=== PATIENT | female | born 1990 | race Caucasian/White ===

== ENCOUNTER 2022-03-20 09:32 | Outpatient (CLI) | payer OTHER, SELFPAY | END 2022-03-20 09:33 | disposition home or self-care (01) | PROVIDERS: Visit Provider Advanced Practice Midwife | DX: Z34.91 Encounter for supervision of normal pregnancy, unspecified, first trimester (principal); O34.81 Maternal care for other abnormalities of pelvic organs, first trimester; N83.11 Corpus luteum cyst of right ovary; Z3A.01 Less than 8 weeks gestation of pregnancy | CPT/HCPCS: 76817; 84702; 86850; 86900; 86901 ==

== ENCOUNTER 2022-03-22 12:52 | Outpatient (CLI) | payer OTHER, SELFPAY | END 2022-03-22 12:53 | disposition home or self-care (01) | PROVIDERS: Visit Provider Advanced Practice Midwife | DX: Z34.91 Encounter for supervision of normal pregnancy, unspecified, first trimester (principal); Z3A.08 8 weeks gestation of pregnancy | CPT/HCPCS: 84702 ==

== ENCOUNTER 2022-04-01 17:04 | Outpatient (CLI) | payer OTHER, SELFPAY ==
--- NOTE | 2022-04-01 17:00 | CRLHL7_ITS ---
For Patients: As a result of the Century Cures Act, medical imaging exams and procedure reports are released immediately into your electronic medical record. You may view this report before your referring provider. If you have questions, please contact your health care provider. INDICATION: Follow up viability COMPARISON: 03/20/2022 TECHNIQUE: Real-time briceño-scale imaging of the pelvis was performed. FINDINGS: There is no intrauterine or ectopic . Focus of increased echogenicity within the endometrial canal is present measuring 1.6 x 0.4 x 1.0 cm representing blood products. Endometrial thickness 7 millimeters. Ovaries normal. IMPRESSION: No intrauterine or ectopic . Residual blood products in the uterine fundal endometrium. Dictated by J Carlos Kam MD @ 04/02/2022 8:35:54 AM (Electronically Signed)
== END 2022-04-01 17:05 | disposition home or self-care (01) ==
LOC: US 17:04
PROVIDERS: Visit Provider Advanced Practice Midwife
DX: O20.9 Hemorrhage in early pregnancy, unspecified (principal)
CPT/HCPCS: 76817

== ENCOUNTER 2022-04-01 18:34 | Outpatient (CLI) | payer OTHER, SELFPAY ==
[2022-04-01 20:08] LABS: HCG Quantitative* 16.63 mIU/mL
== END 2022-04-01 18:35 | disposition home or self-care (01) ==
LOC: NFLDREF 18:34
PROVIDERS: Visit Provider Physician Assistant
DX: O03.9 Complete or unspecified spontaneous abortion without complication (principal)
CPT/HCPCS: 84702

== ENCOUNTER 2022-07-22 16:28 | Outpatient (CLI) | payer OTHER, SELFPAY ==
--- OUTSIDE RECORDS SUMMARY | 2022-07-22 16:31 | XMS_ITS | Clinical Summary ---
:1990 Author Organization [facility] Address [address] [place] [address] Care Team Providers Name Role Phone None Reported, Pcp Primary Care Provider Unavailable Source Comments Patient records contain information from all sites at [facility]. For routine questions regarding patient records, call [phone] during business hours, M-F 8:00 AM - 5:00 PM Central Time. Record requests for emergency care only can be directed to [phone] at any time.[facility] Allergies Active Allergy Reactions Severity Noted Date Comments Sulfa (Sulfonamide Other (see comments), 03/19/2022 Tachycardia Antibiotics) Hallucinations Medications Medication Sig Dispensed Refills Start Date End Date Status Take 1 tablet by 0 Act hardy [id number]-[id number] 27 mouth daily. mg iron- 1 mg tablet Active Problems Comments Yes No known active problems Social History Tobacco Use Types Packs/Day Years Used Date Smoking Tobacco: Never Tobacco Cessation: Counseling Given: Not Answered Alcohol Use Standard Drinks/Week Comments Not Currently 0 (1 standard drink = 0.6 oz pure alcoho l) Comments Yes Sex Assigned at Date Recorded Not on file Last Filed Vital Signs Vital Sign Reading Time Taken Comments Blood Pressure 125/84 03/19/2022 8:30 PM CDT Pulse 81 03/19/2022 8:30 PM CDT Temperature 36.9 ??C (98.4 ??F) 03/19/2022 4:35 PM CDT Respiratory Rate 15 03/19/2022 8:30 PM CDT Oxygen Saturation 100% 03/19/2022 8:30 PM CDT Inhaled Oxygen Concentration - - Weight 75.3 kg (166 lb 0.1 oz) 03/19/2022 4:25 PM CDT Height - - Body Mass Index - - Plan of Treatment Health Maintenance Due Date Last Done Comments Cervical Cancer Screening 1990 HIV Screening 1990 Hepatitis B Vaccines (1 of 3 - 1992 3-dose series) Hepatitis C Screening 1992 COVID-19 Vaccine (#1) 1992 DTaP,Tdap,and Td Vaccines (1 - 2011 Tdap) Depression Screening (Annual 08/10/2021 PHQ-2) Influenza Vaccine (#1) 2022 Pneumococcal vaccine (0-64 years) Aged Out No longer eligible based on patient's age to complete this topic Insurance Payer Benefit Plan / Subscriber ID Effective Dates Phone Addre ss Type Group [employer] [id number] 2021-Present [phone] [address] [place] [address] Care Teams Purchasing Associate Relationship Specialty Start Date End Date None Reported, Pcp PCP - General Family Medicine 03/19/22
--- OUTSIDE RECORDS SUMMARY | 2022-07-22 16:31 | XMS_ITS | Encounter Summary ---
:1990 Author Organization [facility] Address [address] [place] [address] Care Team Providers Name Role Phone None Reported, Pcp Primary Care Provider Unavailable Reason for Referral Outpatient (Routine) - Pending Review Specialty Diagnoses / Procedures Referred By Contact Refer red To Contact Emergency Medicine Diagnoses Threatened (HCC) Ramírez Ernst D.O. [facility] [address] [place] [address] Referral ID Status Reason Start Date Expiration Date Visits V isits Requested Authorized [id number] Pending 03/19/2022 03/19/2023 1 1 Review Reason for Visit Reason Comments Vaginal Bleeding Started last night. No traum a. Just travelled for 2 days, drove up from [place]. Encounter Details Date Type Department Care Team Description 03/19/2022 Emergency [place] [facility] Chidi Salinas M.D. [address] [place] [address] Threatened Department Ramírez Ernst D.O. [address] [place] [address] (HCC) [address] [facility] (Primary Dx) [place] [address] Social History Tobacco Use Types Packs/Day Years Used Date Smoking Tobacco: Never Tobacco Cessation: Counseling Given: Not Answered Alcohol Use Standard Drinks/Week Comments Not Currently 0 (1 standard drink = 0.6 oz pure alcoho l) Sex Assigned at Date Recorded Not on file documented as of this encounter Last Filed Vital Signs Vital Sign Reading [...] - - Body Mass Index - - documented in this encounter Discharge Instructions AttachmentsThe following attachments cannot be sent through Care Everywhere. Threatened Miscarriage Wyim-bc-Bney (Serbian)documented in this encounter Medications at Time of Discharge Medication Sig Dispensed Refills Start Date End Date Take 1 tablet by 0 [id number]-Jh-domg-FA 27 mg mouth daily. iron- 1 mg tablet documented as of this encounter ED Notes Ramírez Ernst D.O. - 03/19/2022 8:38 PM CDT Care of patient transferred to me by Dr. Salinas. Disposition pending blood type/beta hCG. At the time of care transition patient was awaiting type and screen and beta quant. Her blood type is AB positive so she does not warrant treatment with RhoGAM. Her beta quant is just over 6100. She has follow-up arranged with an document control clerk and [place] for tomorrow. I have encouraged her to retain this appointment. I have also placed an order for follow-up with OBGYN here in [place] as the patient is new to the [place] area and would like to establish care with them. She voices understandingand agreed with the plan. VITAL SIGNS BP 125/84 Pulse 81 Temp 36.9 ??C (Oral) Resp 15 Wt 75.3 kg LMP 01/22/2022 (Exact Date) SpO2 100% Final Diagnoses: as of 03/19/222037 Threatened (HCC) Ramírez Ernst D.O. 03/19/222039 Andreas Salinas M.D. - 03/19/2022 4:50 PM CDT SUBJECTIVE CHIEF COMPLAINT/REASON FOR VISIT Vaginal Bleeding (Started last night. No trauma. Just travelled for 2 days, drove up from [place]. ) HISTORY OF PRESENT ILLNESS 31-year-old female with no significant past medical history at 8 weeks and 3 days per last menstrual period who presents for evaluation of vaginal spotting that started yesterday. It was dark brown last night and turned to dark red. It has not been heavy bleeding, and she has just used a liner. There is no associated urinary symptoms, chest pain, shortness of breath, lightheadedness, vomiting, abdominal pain, headache, chest pain, or shortness of breath with this. She has had some mild crampy abdominal and back pain with this. REVIEW OF SYSTEMS Constitutional: Negative for fever. HENT: Negative for congestion. Respiratory: Negative for shortness of breath. Cardiovascular: Negative for chest pain. Gastrointestinal: Positive for abdominal pain. Negative for diarrhea and vomiting. Genitourinary: Positive for vaginal bleeding. Negative for dysuria and urgency. Musculoskeletal: Positive for back pain. Skin: Negative for rash. Psychiatric/Behavioral: Negative for behavioral problems. All other systems reviewed and are negative. OBJECTIVE Initial Vitals Temperature Pulse Rate Heart Rate Resp Rate Blood Pressure SpO2 03/19/22 1635 03/19/22 1635 -- 03/19/22 1635 03/19/22 1635 03/19/22 1635 36.9 ??C 75 16 131/79 100 % Pain Score 03/19/22 1624 2 PHYSICAL EXAMINATION Constitutional: Vitals reviewed. No distress. HENT: Mouth/Throat: Mucous membranes are moist. Eyes: Conjunctivae are normal. Pulmonary/Chest: Effort normal. Abdominal: Soft. exhibits no distension. There is no abdominal tenderness. Musculoskeletal: General: No deformity. Neurological: Alert. Skin: Skin is normal color. She is not diaphoretic. Psychiatric: She has a normal mood and affect. ASSESSMENT/PLAN IMPRESSION AND PLAN 31-year-old female who presents for evaluation of vaginal spotting. She is well- appearing with reassuring vital signs. We will obtain ultrasound to evaluate for evidence of any ectopic versusintrauterine . Her abdomen is soft without tenderness, and I do not suspect other emergent intra-abdominal pathology at this time. Patient has follow-up scheduled with OB tomorrow. Care of the patient was signed out to the evening team with labs pending. Final Diagnoses: as of 03/20/221957 Threatened (HCC) Andreas Salinas M.D. 03/20/221958 Claudia Ramsey R.N. - 03/19/2022 4:25 PM CDT Pt comes to the ED by herself. Pt has had spotting x 1 day. She has not soaked any pads, but has used 3 pantiliners. Back cramping. Claudia Ramsey R.N. 03/19/22 1626 documented in this encounter Plan of Treatment Scheduled Referrals Name Type Priority Associated Order Schedule Diagnoses POST ED VISIT Outpatient Referral Routine Threatened Expected: Obstetrics and (HCC) 03/19/2022 Gynecology (Approximate), Expires: 06/19/2023 documented as of this encounter Procedures Procedure Name Priority Date/Time Associated Comments Diagnosis TESTING LOCATION STAT 03/19/2022 7:22 Results for this PM CDT procedure are i n the results section. TYPE AND SCREEN STAT 03/19/2022 7:22 Results f or this PM CDT procedure are i n the results section. HUMAN CHORIONIC STAT 03/19/2022 7:04 Results f or this GONADOTROPIN (HCG), PM CDT procedur e are in JOLENE, the results section. US OB FIRST RAD - Semiurgent 03/19/2022 5:16 Results for this TRIMESTER AND (Fast; most ED PM CDT procedure ar e in TRANSVAGINAL patients; some the results inpatients) section. TEST, STAT 03/19/2022 4:51 Results f or this POCT, U (LAB) PM CDT procedure are in the results section. documented in this encounter Results Testing Location (03/19/2022 7:22 PM CDT) athologist Signature Testing [facility] DEFAULT 03/19/2022 [facility] Location 7:25 PM CDT Specimen Anatomical Collection Method Collection Time Receive d Time (Source) Location / / Volume Laterality Blood 03/19/2022 7:22 PM 7:25 CDT PM CDT Andreas Salinas M.D. LAB BLOOD BANK TEST ORDERABL ES Performing Organization Address City/State/ZIP Code Phon e Number [facility]- [address] [place] [address] [facility] [place] [address] System in [place] [address] [place] [address] [place] Type and Screen (with reflex Antibody ID) (03/19/2022 7:22 PM CDT) [facility] gist Method Time Signature ABO Group AB 03/19/2022 [facility] 8:25 PM CDT Rh Type POS 03/19/2022 [facility] 8:25 PM CDT Antibody Screen NEG 03/19/2022 [facility] 8:25 PM CDT Type & Screen 03/22/2022 03/19/2022 [facility] Expiration 23:59 8:25 PM CDT ELXM Eligible Y 03/19/2022 [facility] 8:25 PM CDT Specimen Anatomical Collection Method Collection Time Receive d Time (Source) Location / / Volume Laterality Blood (Blood, 03/19/2022 7:22 PM 03/19/20 7:25 Venous) CDT PM CDT Andreas Salinas M.D. LAB BLOOD BANK TEST ORDERABL ES Performing Organization Address City/State/ZIP Code Phon e Number [facility]- [address] [place], [place] [address] [facility] [place] [address] System in [place] [facility] [place] (ABNORMAL) hCG (Human Chorionic Gonadotropin), Quantitative, (03/19/2022 7:04 PM CDT) P athologist Signature HCG, 6187 (H) <5 IU/L 03/19/2022 [facility] Quantitative, 7:25 PM CDT , P Specimen Anatomical Collection Method Collection Time Receive d Time (Source) Location / / Volume Laterality Blood (Blood, 03/19/2022 7:04 PM 03/19/20 7:06 Venous) CDT PM CDT Andreas Salinas M.D. LAB BLOOD ADD-ON Performing Organization Address City/State/ZIP Code Phon e Number [facility]- [address] [facility] [place], [place] [address] [place] [address] System in [place] [address] [place] [address] [place] US OB First Trimester and Transvaginal (03/19/2022 5:16 PM CDT) Anatomical Region Laterality Modality Body, Ultrasound OB RST LOS, Ultrasound ARZ LOS, Ultrasound FLA N/A Ultrasound LOS Specimen (Source) Anatomical Collection Method Collection Time Re ceived Time Location / / Volume Laterality 03/19/2022 6:00 PM CDT Impressions 03/19/2022 6:02 PM CDT 1. Empty intrauterine gestational sac correlating 5 weeks and 0 days of gestational age. 2. Recommend follow-up with serial beta hCGs and repeat ultrasound as clinically warranted. Narrative 03/19/2022 6:02 PM CDT EXAM: US OB FIRST TRIMESTER AND TRANSVAGINAL COMPARISON: None TECHNIQUE: Transabdominal and Transvagin al FINDINGS: Number of Gestations: Single Gestational age and JAN by LMP or OB/EHR assignment: 8 w 0 d, JAN: 10/29/2022 INTRAUTERINE Pole: Not seen, [place]-Rump Length: N/A Gestational Sac: Normal Yolk Sac: Not seen Placenta Location: Too Early to ID Age and JAN by current ultrasound measur ements: 5 w 0 d, JAN: 11/19/2022. heart rate: N/A Uterus: No unexpected findings. Right Ovary/Adnexa: Corpus luteum. Left Ovary/Adnexa: Normal. Cervical Length: Subjectively normal by Transabd evaluation only Intraperitoneal Fluid: None. There is agreement with the initial VRAD interpretation. Procedure Note Jay Fallon Jr., M.D. - 2021 EXAM: US OB FIRST TRIMESTER AND TRANSVAG INAL COMPARISON: None TECHNIQUE: Transabdominal and Transvagin al FINDINGS: Number of Gestations: Single Gestational age and JAN by LMP or OB/EHR assignment: 8 w 0 d, JAN: 10/29/2022 INTRAUTERINE Pole: Not seen, [place]-Rump Length: N/A Gestational Sac: Normal Yolk Sac: Not seen Placenta Location: Too Early to ID Age and JAN by current ultrasound measur ements: 5 w 0 d, JAN: 11/19/2022. heart rate: N/A Uterus: No unexpected findings. Right Ovary/Adnexa: Corpus luteum. Left Ovary/Adnexa: Normal. Cervical Length: Subjectively normal by Transabd evaluation only Intraperitoneal Fluid: None. There is agreement with the initial VRAD interpretation. IMPRESSION: 1. Empty intrauterine gestational sac co rrelating 5 weeks and 0 days of gestational age. 2. Recommend follow-up with serial beta hCGs and repeat ultrasound as clinically warranted. Andreas Salinas M.D. IMG OB US PROCEDURES (ABNORMAL) Test, POCT, Urine (lab) (03/19/2022 4:51 PM CDT) [facility] Method Time Signature Positive (A) 03/19/2022 [facility] Test, POCT, U 5:02 PM CDT Specimen Anatomical Collection Method Collection Time Receive d Time (Source) Location / / Volume Laterality Urine (Urine, 03/19/2022 4:51 PM 03/19/20 4:53 Midstream) CDT PM CDT Andreas Salinas M.D. 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
--- OUTSIDE RECORDS SUMMARY | 2022-07-22 16:32 | XMS_ITS | Continuity of Care Document ---
:1990 Author Organization [facility] Care Team Providers Name Role Phone [facility] Unavailable Unavailable Problems Combined list of problems from Department of Defense and [facility] Affairs facilities. It does not include entries that were removed or entered in error. Problem Status Onset Date Problem Type Date of Comments Source Resolution headache Active Condition DoD pelvic pain Inactive Condition DoD abdominal pain Inactive Condition DoD Vomiting Inactive Condition DoD nausea Inactive Condition DoD joint pain, Inactive Condition DoD localized in the hip dislocation of Inactive Condition DoD knee routine Inactive Condition DoD gynecological exam with cervical pap smear Patient Inactive Condition DoD Counseling: vomiting Inactive Condition DoD diarrhea Inactive Condition DoD urinary tract Inactive Condition DoD infection vaginal discharge Active Condition Do D pain during Inactive Condition DoD urination (dysuria) Allergies, Adverse Reactions, Alerts Combined list of allergies from Department of Defense and Veterans Affairs facilities. It does not include entries that were removed or entered in error. Substance Category Reaction Severity Reaction Status Date Comments S ource type Reported SULFA Drug Palpitatio Drug active [facility] (SULFONAMI allergy n, allergy 5 [place] , [place] ANTIBIOTIC S) {Cla } SULFA Propensity Shivering Propensity Active Ambulator (SULFONAMI to adverse to adverse 5 y [place] reactions reactions Phar susan ANTIBIOTIC to to S) {Cla } substance substance Results Combined list of recent chemistry, hematology and other laboratory results from Department of Defense and Veterans Affairs, ranging from 15 months to all on record, depending upon the facility. Order Results Value Reference Date Interpretation Specimen Commen ts Source Name Range COVID-19 SARS-CoV-2 Negative 07/19 POSITIVE: NASAL POSITIVE: Camp SARS-CoV-2 MUCUS SARS-CoV-2 Le zofia detected detected [facility] NEGATIVE: NEGATIVE: [facility] babs SARS-CoV-2 not SARS-CoV- 2 Center detected not Negative results detecte d do not preclude Negative SARS-CoV-2 results do infection and not should not be preclude used as the sole SARS-Co V-2 basis for infection patient and should management not be used decisions. as the sole Negative results basis f or must be combined patient with clinical management observations, decisions. patient history, Negativ e and results epidemiological must be information. The combine d Aptima with SARS-CoV-2 assay clinica l performed on the observa tion [place] Fusion s, patien t system is a history, nucleic acid and amplification in epidemi olog vitro diagnostic ical test intended informatio n for the . The qualitative Aptima detection of RNA SARS-Co V-2 from SARS-CoV-2 assay isolated and performed purified from on the upper [place] respiratory Fusion specimens system is a obtained from nucleic individuals acid meeting COVID-19 amplifi dhaval clinical and/or on in vi tro epidemiological diagnost ic criteria, as test well as upper intended respiratory for the specimens qualitative collected from detection an individual, of RNA fr om including SARS-CoV-2 individuals isolated without symptoms and or other reason purified to suspect from upper COVID-19 respiratory infection. The specimens Aptima obtained SARS-CoV-2 assay from is for use only individu als under Emergency meeting Use COVID-19 Authorization clinical (EUA) in the [place] and/or laboratories epidemiolog certified under ical the Clinical criteria, Laboratory as well as Improvement upper Amendments of respirator y 1988 (CLIA), 42 specimen s [place].S[place]C. 263a, collected that meets from an requirements to individu al, perform high including complexity individuals tests. Results without are for the symptoms or identification other of SARS-CoV-2 reason to RNA. The suspect SARS-CoV-2 RNA COVID-19 is generally infection. detectable in The Aptima upper SARS-CoV-2 respiratory assay is specimens during for use the acute phase only und er of infection. Emergency Positive results Use are indicative Authoriza ti of the presence on (EUA) in of the [place] [id number], laborator ie clinical s certified correlation with under t he patient history Clinical and other Laboratory diagnostic Improvement information is Amendment s necessary to of 1987 determine (CLIA), 42 patient [place].S.C. infection 263a, that status. meets requirement s to perform high complexity tests. Results are for the identificat ion of SARS-CoV-2 RNA. The SARS-CoV-2 RNA is generally detectable in upper respiratory specimens during the acute phase of infection. Positive results are indicative of the presence of SARS-CoV-2R NA, clinical correlation with patient history and other diagnostic information is necessary to determine patient infection status. Vitamin Vitamin D, 33.10 30.0 - 07/02 INTERPRETATION(S SERUM INTE RPRETAT Camp D, 25-Hydroxy ng/mL 100.0 /2020 ): ION(S): [place] 25-[place] Classification Classifi cat [facility] xy of Vitamin D ion of Med ical Status: Vitamin D Center Deficient: <20 Status: ng/mL Deficient: Insufficient: <20 ng/mL 20-29 ng/mL Insufficien Sufficient: t: 20-29 30-100 ng/mL ng/mL Possible Sufficient: Toxicity: >100 30-100 ng/mL There are ng/mL no pediatric Possible reference ranges Toxicit y: established for >100 ng/ mL this test. There are Adult age is no 18+ This assay pediatric is for the reference quantitative ranges determination of establi shed total 25 (OH) for this vitamin D. It is test. intended as an Adult a ge aid in the is 18+ This determination of assay i s vitamin D for the sufficiency. quantitativ Results should e always be determinati interpreted in on of tot al conjunction with 25 (OH) the patient's vitamin D. medical history, It is clinical intended as presentation, an aid in and other the findings. determinati Testing on of performed by vitamin D Electrochempineda camacho. . Results Performed by: should Epidemiology always be Laboratory interpreted Service in [facility] conjunc tion [id number] [place], [place] patient 's [id number] medical history, clinical presentatio n, and other findings. Testing performed by Electrochem eugenio cristina. Performed by: Epidemiolog y Laboratory Service [facility] [id number] [place] [address] Hemoglob Estimated 94 % 07/02 BLOOD Camp in A1c Average /2020 [facility] Panel [facility] Hemoglob Estimated 94 % 07/02 BLOOD Camp in A1c Average /2020 [facility] CBC MPV 11.8 fL 9.4 - 12.3 07/02 BLOOD Camp W/Diff /2020 [facility] CBC MPV 11.8 fL 9.4 - 12.3 07/02 BLOOD Camp W/Diff /2020 [facility] CBC MPV 11.8 fL 9.4 - 12.3 07/02 BLOOD Camp W/Diff [facility] CBC MPV 11.8 fL 9.4 - 12.3 07/02 BLOOD Camp W/Diff [facility] CBC MPV 11.8 fL 9.4 - 12.3 07/02 BLOOD Camp W/Diff [facility] CBC MPV 11.8 fL 9.4 - 12.3 07/02 BLOOD Camp W/Diff [facility] CBC MPV 11.8 fL 9.4 - 12.3 07/02 BLOOD Camp W/Diff [facility] CBC MPV 11.8 fL 9.4 - 12.3 07/02 BLOOD Camp W/Diff [facility] CBC MPV 11.8 fL 9.4 - 12.3 07/02 BLOOD Camp W/Diff [facility] CBC MPV 11.8 fL 9.4 - 12.3 07/02 BLOOD Camp W/Diff [facility] CBC MPV 11.8 fL 9.4 - 12.3 07/02 BLOOD Camp W/Diff [facility] CBC MPV 11.8 fL 9.4 - 12.3 07/02 BLOOD Camp W/Diff [facility] CBC MPV 11.8 fL 9.4 - 12.3 07/02 BLOOD Camp W/Diff [facility] CBC MPV 11.8 fL 9.4 - 12.3 07/02 BLOOD Camp W/Diff [facility] CBC MPV 11.8 fL 9.4 - 12.3 07/02 BLOOD Camp W/Diff [facility] CBC MPV 11.8 fL 9.4 - 12.3 07/02 BLOOD Camp W/Diff [facility] CBC MPV 11.8 fL 9.4 - 12.3 07/02 BLOOD Camp W/Diff [facility] CBC MPV 11.8 fL 9.4 - 12.3 07/02 BLOOD Camp W/Diff [facility] CBC MPV 11.8 fL 9.4 - 12.3 07/02 BLOOD Camp W/Diff [facility] CBC MPV 11.8 fL 9.4 - 12.3 07/02 BLOOD Camp W/Diff [facility] CBC MPV 11.8 fL 9.4 - 12.3 07/02 BLOOD Camp W/Diff [facility] CBC MPV 11.8 fL 9.4 - 12.3 07/02 BLOOD Camp W/Diff [facility] CBC MPV 11.8 fL 9.4 - 12.3 07/02 BLOOD Camp W/Diff [facility] Microsco Epithelial 1 /[HPF] 07/02 URINE Cam p pic Cells /2020 [facility] Microsco Epithelial 1 /[HPF] 07/02 URINE Cam p pic Cells /2020 [facility] Microsco Epithelial 1 /[HPF] 07/02 URINE Cam p pic Cells /2020 [facility] Urinalys Specific 1.013 .07/02 URINE Camp is [place] 1.030 [facility] Urinalys Specific 1.013 .07/02 URINE [facility] is [place] 1.030 [facility] Urinalys Specific 1.013 .07/02 URINE [place] is [place] 1.030 [facility] Urinalys Specific 1.013 .000 - 07/02 URINE [facility] is [place] 1.030 [facility] Urinalys Specific 1.013 .07/02 URINE [facility] is [place] 1.030 [facility] Urinalys Specific 1.013 .000 07/02 URINE [facility] is [place] 1.030 [facility] Urinalys Specific 1.013 .000 07/02 URINE [facility] is [place] 1.030 [facility] Urinalys Specific 1.013 .000 07/02 URINE Camp is [place] 1.030 /2020 [facility] Urinalys Specific 1.013 1.000 - 07/02 URINE Camp is [place] 1.030 /2020 [facility] Urinalys Specific 1.013 1.000 - 07/02 URINE Camp is [place] 1.030 [facility] Urinalys Specific 1.013 1.000 - 07/02 URINE Camp is [place] 1.030 /2020 [facility] Urinalys Specific 1.013 1.000 - 07/02 URINE Camp is [place] 1.030 [facility] Vitamin Folate 19.8 8.7 - 55.4 07/02 SERUM Camp B12 ng/mL /2020 [facility] ([facility] balamin) [facility]olate Center Vitamin Folate 19.8 8.7 - 55.4 07/02 SERUM Camp B12 ng/mL /2020 [facility] Center Comprehe GFR Black 136.70 60 07/02 >= 60 = Normal SERUM >= 60 = Camp nsive mL/min /2020 or mildly Normal or Leje une Metaboli decreased GFR mildly N aval c Panel 30-59 = decreased Medica l W/GFR Moderately GFR 30-59 = C enter decreased GFR Moderately 15-29 = Severely decreas ed decreased GFR < GFR 15-2 9 = 15 = Kidney Severely failure This is decrease d an estimated GFR GFR < 1 5 = (Glomerular Kidney Filtration Rate) failure only. The value This is an has been derived estimat ed from the Chronic GFR Kidney Disease - ([facility] Epidemiology Filtration (CKD-Epi) Rate) only. Collaboration The value Equation. The has been calculation derived automatically from the takes patient Chronic sex into Kidney account, but Disease - [facility] cannot Epidemiolog automatically y (CKD-Epi ) adjust the Collaborati formula for on Equatio n. patients, The therefore two calculatio n GFR results are automati babs reported -- ly takes GFR-NON AA and patient s ex GFR-AA. As with into all estimations, account , results may not but [facility] be valid for cannot certain automatical sub-groups ly adjust including: the formula pediatric for patients (0-17 [place] years old), patients, severely therefore hypoalbuminemic two GFR patients, results are patients not in reported -- steady state GFR-NON AA (including acute and GFR -AA. renal failure), As with all dialysis estimations patients, and , results patients with may not be atypical body valid for habitus. Result certain will not be sub-groups reported on including: patients under pediatric 18 years of age. patient s Some (0-17 years pharmacological old), therapeutics are severel y dosed based on hypoalbum in older versions emic of the eGFR. patients, Where deemed patients necessary, refer not in to Pharmacy for steady assistance or state more (including information. acute renal failure), dialysis patients, and patients with atypical body habitus. Result will not be reported on patients under 18 years of age. Some pharmacolog ical therapeutic s are dosed based on older versions of the eGFR. Where deemed necessary, refer to Pharmacy for assistance or more information . Comprehe GFR Black 136.70 60 07/02 >= 60 = Normal SERUM >= 60 = Camp nsive mL/min /2020 or mildly Normal or Leje une Metaboli decreased GFR mildly N aval c Panel 30-59 = decreased Medica l W/GFR Moderately GFR 30-59 = C enter decreased GFR Moderately 15-29 = Severely decreas ed decreased GFR < GFR 15-2 9 = 15 = Kidney Severely failure This is decrease d an estimated GFR GFR < 1 5 = (Glomerular Kidney Filtration Rate) failure only. The value This is an has been derived estimat ed from the Chronic GFR Kidney Disease - ([facility] ulnd Epidemiology Filtration (CKD-Epi) Rate) only. Collaboration The value Equation. The has been calculation derived automatically from the takes patient Chronic sex into Kidney account, but Disease - [facility] cannot Epidemiolog automatically y (CKD-Epi ) adjust the Collaborati formula for on Equatio n. patients, The therefore two calculatio n GFR results are automati babs reported -- ly takes GFR-NON AA and patient s ex GFR-AA. As with into all estimations, account , results may not but [facility] be valid for cannot certain automatical sub-groups ly adjust including: the formula pediatric for patients (0-17 [place] years old), patients, severely therefore hypoalbuminemic two GFR patients, results are patients not in reported -- steady state GFR-NON AA (including acute and GFR -AA. renal failure), As with all dialysis estimations patients, and , results patients with may not be atypical body valid for habitus. Result certain will not be sub-groups reported on including: patients under pediatric 18 years of age. patient s Some (0-17 years pharmacological old), therapeutics are severel y dosed based on hypoalbum in older versions emic of the eGFR. patients, Where deemed patients necessary, refer not in to Pharmacy for steady assistance or state more (including information. acute renal failure), dialysis patients, and patients with atypical body habitus. Result will not be reported on patients under 18 years of age. Some pharmacolog ical therapeutic s are dosed based on older versions of the eGFR. Where deemed necessary, refer to Pharmacy for assistance or more information . Comprehe GFR Black 136.70 60 07/02 >= 60 = Normal SERUM >= 60 = Camp nsive mL/min /2020 or mildly Normal or Leje une Metaboli decreased GFR mildly N aval c Panel 30-59 = decreased Medica l W/GFR Moderately GFR 30-59 = C enter decreased GFR Moderately 15-29 = Severely decreas ed decreased GFR < GFR 15-2 9 = 15 = Kidney Severely failure This is decrease d an estimated GFR GFR < 1 5 = (Glomerular Kidney Filtration Rate) failure only. The value This is an has been derived estimat ed from the Chronic GFR Kidney Disease - (Glomer ular Epidemiology Filtration (CKD-Epi) Rate) only. Collaboration The value Equation. The has been calculation derived automatically from the takes patient Chronic sex into Kidney account, but Disease - [facility] cannot Epidemiolog automatically y (CKD-Epi ) adjust the Collaborati formula for on Equatio n. patients, The therefore two calculatio n GFR results are automati babs reported -- ly takes GFR-NON AA and patient s ex GFR-AA. As with into all estimations, account , results may not but [facility] be valid for cannot certain automatical sub-groups ly adjust including: the formula pediatric for patients (0-17 [place] years old), patients, severely therefore hypoalbuminemic two GFR patients, results are patients not in reported -- steady state GFR-NON AA (including acute and GFR -AA. renal failure), As with all dialysis estimations patients, and , results patients with may not be atypical body valid for habitus. Result certain will not be sub-groups reported on including: patients under pediatric 18 years of age. patient s Some (0-17 years pharmacological old), therapeutics are severel y dosed based on hypoalbum in older versions emic of the eGFR. patients, Where deemed patients necessary, refer not in to Pharmacy for steady assistance or state more (including information. acute renal failure), dialysis patients, and patients with atypical body habitus. Result will not be reported on patients under 18 years of age. Some pharmacolog ical therapeutic s are dosed based on older versions of the eGFR. Where deemed necessary, refer to Pharmacy for assistance or more information . Comprehe GFR Black 136.70 60 07/02 >= 60 = Normal SERUM >= 60 = Camp nsive mL/min /2020 or mildly Normal or Leje une Metaboli decreased GFR mildly N aval c Panel 30-59 = decreased Medica l W/GFR Moderately GFR 30-59 = C enter decreased GFR Moderately 15-29 = Severely decreas ed decreased GFR < GFR 15-2 9 = 15 = Kidney Severely failure This is decrease d an estimated GFR GFR < 1 5 = (Glomerular Kidney Filtration Rate) failure only. The value This is an has been derived estimat ed from the Chronic GFR Kidney Disease - (Glomer ular Epidemiology Filtration (CKD-Epi) Rate) only. Collaboration The value Equation. The has been calculation derived automatically from the takes patient Chronic sex into Kidney account, but Disease - [facility] cannot Epidemiolog automatically y (CKD-Epi ) adjust the Collaborati formula for on Equatio n. patients, The therefore two calculatio n GFR results are automati babs reported -- ly takes GFR-NON AA and patient s ex GFR-AA. As with into all estimations, account , results may not but [facility] be valid for cannot certain automatical sub-groups ly adjust including: the formula pediatric for patients (0-17 [place] years old), patients, severely therefore hypoalbuminemic two GFR patients, results are patients not in reported -- steady state GFR-NON AA (including acute and GFR -AA. renal failure), As with all dialysis estimations patients, and , results patients with may not be atypical body valid for habitus. Result certain will not be sub-groups reported on including: patients under pediatric 18 years of age. patient s Some (0-17 years pharmacological old), therapeutics are severel y dosed based on hypoalbum in older versions emic of the eGFR. patients, Where deemed patients necessary, refer not in to Pharmacy for steady assistance or state more (including information. acute renal failure), dialysis patients, and patients with atypical body habitus. Result will not be reported on patients under 18 years of age. Some pharmacolog ical therapeutic s are dosed based on older versions of the eGFR. Where deemed necessary, refer to Pharmacy for assistance or more information . Comprehe GFR Black 136.70 60 07/02 >= 60 = Normal SERUM >= 60 = Camp nsive mL/min /2020 or mildly Normal or Leje une Metaboli decreased GFR mildly N aval c Panel 30-59 = decreased Medica l W/GFR Moderately GFR 30-59 = C enter decreased GFR Moderately 15-29 = Severely decreas ed decreased GFR < GFR 15-2 9 = 15 = Kidney Severely failure This is decrease d an estimated GFR GFR < 1 5 = (Glomerular Kidney Filtration Rate) failure only. The value This is an has been derived estimat ed from the Chronic GFR Kidney Disease - ([facility] ulnd Epidemiology Filtration (CKD-Epi) Rate) only. Collaboration The value Equation. The has been calculation derived automatically from the takes patient Chronic sex into Kidney account, but Disease - [facility] cannot Epidemiolog automatically y (CKD-Epi ) adjust the Collaborati formula for on Equatio n. patients, The therefore two calculatio n GFR results are automati babs reported -- ly takes GFR-NON AA and patient s ex GFR-AA. As with into all estimations, account , results may not but [facility] be valid for cannot certain automatical sub-groups ly adjust including: the formula pediatric for patients (0-17 [place] years old), patients, severely therefore hypoalbuminemic two GFR patients, results are patients not in reported -- steady state GFR-NON AA (including acute and GFR -AA. renal failure), As with all dialysis estimations patients, and , results patients with may not be atypical body valid for habitus. Result certain will not be sub-groups reported on including: patients under pediatric 18 years of age. patient s Some (0-17 years pharmacological old), therapeutics are severel y dosed based on hypoalbum in older versions emic of the eGFR. patients, Where deemed patients necessary, refer not in to Pharmacy for steady assistance or state more (including information. acute renal failure), dialysis patients, and patients with atypical body habitus. Result will not be reported on patients under 18 years of age. Some pharmacolog ical therapeutic s are dosed based on older versions of the eGFR. Where deemed necessary, refer to Pharmacy for assistance or more information . Comprehe GFR Black 136.70 60 07/02 >= 60 = Normal SERUM >= 60 = Camp nsive mL/min /2020 or mildly Normal or Leje une Metaboli decreased GFR mildly N aval c Panel 30-59 = decreased Medica l W/GFR Moderately GFR 30-59 = C enter decreased GFR Moderately 15-29 = Severely decreas ed decreased GFR < GFR 15-2 9 = 15 = Kidney Severely failure This is decrease d an estimated GFR GFR < 1 5 = (Glomerular Kidney Filtration Rate) failure only. The value This is an has been derived estimat ed from the Chronic GFR Kidney Disease - (Glomer ular Epidemiology Filtration (CKD-Epi) Rate) only. Collaboration The value Equation. The has been calculation derived automatically from the takes patient Chronic sex into Kidney account, but Disease - [facility] cannot Epidemiolog automatically y (CKD-Epi ) adjust the Collaborati formula for on Equatio n. patients, The therefore two calculatio n GFR results are automati babs reported -- ly takes GFR-NON AA and patient s ex GFR-AA. As with into all estimations, account , results may not but [facility] be valid for cannot certain automatical sub-groups ly adjust including: the formula pediatric for patients (0-17 [place] years old), patients, severely therefore hypoalbuminemic two GFR patients, results are patients not in reported -- steady state GFR-NON AA (including acute and GFR -AA. renal failure), As with all dialysis estimations patients, and , results patients with may not be atypical body valid for habitus. Result certain will not be sub-groups reported on including: patients under pediatric 18 years of age. patient s Some (0-17 years pharmacological old), therapeutics are severel y dosed based on hypoalbum in older versions emic of the eGFR. patients, Where deemed patients necessary, refer not in to Pharmacy for steady assistance or state more (including information. acute renal failure), dialysis patients, and patients with atypical body habitus. Result will not be reported on patients under 18 years of age. Some pharmacolog ical therapeutic s are dosed based on older versions of the eGFR. Where deemed necessary, refer to Pharmacy for assistance or more information . Comprehe GFR Black 136.70 60 07/02 >= 60 = Normal SERUM >= 60 = Camp nsive mL/min /2020 or mildly Normal or Leje une Metaboli decreased GFR mildly N aval c Panel 30-59 = decreased Medica l W/GFR Moderately GFR 30-59 = C enter decreased GFR Moderately 15-29 = Severely decreas ed decreased GFR < GFR 15-2 9 = 15 = Kidney Severely failure This is decrease d an estimated GFR GFR < 1 5 = (Glomerular Kidney Filtration Rate) failure only. The value This is an has been derived estimat ed from the Chronic GFR Kidney Disease - (Glomer ular Epidemiology Filtration (CKD-Epi) Rate) only. Collaboration The value Equation. The has been calculation derived automatically from the takes patient Chronic sex into Kidney account, but Disease - [facility] cannot Epidemiolog automatically y (CKD-Epi ) adjust the Collaborati formula for on Equatio n. patients, The therefore two calculatio n GFR results are automati babs reported -- ly takes GFR-NON AA and patient s ex GFR-AA. As with into all estimations, account , results may not but [facility] be valid for cannot certain automatical sub-groups ly adjust including: the formula pediatric for patients (0-17 [place] years old), patients, severely therefore hypoalbuminemic two GFR patients, results are patients not in reported -- steady state GFR-NON AA (including acute and GFR -AA. renal failure), As with all dialysis estimations patients, and , results patients with may not be atypical body valid for habitus. Result certain will not be sub-groups reported on including: patients under pediatric 18 years of age. patient s Some (0-17 years pharmacological old), therapeutics are severel y dosed based on hypoalbum in older versions emic of the eGFR. patients, Where deemed patients necessary, refer not in to Pharmacy for steady assistance or state more (including information. acute renal failure), dialysis patients, and patients with atypical body habitus. Result will not be reported on patients under 18 years of age. Some pharmacolog ical therapeutic s are dosed based on older versions of the eGFR. Where deemed necessary, refer to Pharmacy for assistance or more information . Comprehe GFR Black 136.70 60 07/02 >= 60 = Normal SERUM >= 60 = [place] nsive mL/min /2020 or mildly Normal or Leje une Metaboli decreased GFR mildly N aval c Panel 30-59 = decreased Medica l W/GFR Moderately GFR 30-59 = C enter decreased GFR Moderately 15-29 = Severely decreas ed decreased GFR < GFR 15-2 9 = 15 = Kidney Severely failure This is decrease d an estimated GFR GFR < 1 5 = (Glomerular Kidney Filtration Rate) failure only. The value This is an has been derived estimat ed from the Chronic GFR Kidney Disease - ([facility] Epidemiology Filtration (CKD-Epi) Rate) only. Collaboration The value Equation. The has been calculation derived automatically from the takes patient Chronic sex into Kidney account, but Disease - [facility] cannot Epidemiolog automatically y (CKD-Epi ) adjust the Collaborati formula for on Equatio n. patients, The therefore two calculatio n GFR results are automati babs reported -- ly takes GFR-NON AA and patient s ex GFR-AA. As with into all estimations, account , results may not but [facility] be valid for cannot certain automatical sub-groups ly adjust including: the formula pediatric for patients (0-17 [place] years old), patients, severely therefore hypoalbuminemic two GFR patients, results are patients not in reported -- steady state GFR-NON AA (including acute and GFR -AA. renal failure), As with all dialysis estimations patients, and , results patients with may not be atypical body valid for habitus. Result certain will not be sub-groups reported on including: patients under pediatric 18 years of age. patient s Some (0-17 years pharmacological old), therapeutics are severel y dosed based on hypoalbum in older versions emic of the eGFR. patients, Where deemed patients necessary, refer not in to Pharmacy for steady assistance or state more (including information. acute renal failure), dialysis patients, and patients with atypical body habitus. Result will not be reported on patients under 18 years of age. Some pharmacolog ical therapeutic s are dosed based on older versions of the eGFR. Where deemed necessary, refer to Pharmacy for assistance or more information . Comprehe GFR Black 136.70 60 07/02 >= 60 = Normal SERUM >= 60 = [place] nsive mL/min /2020 or mildly Normal or Leje une Metaboli decreased GFR mildly N aval c Panel 30-59 = decreased Medica l W/GFR Moderately GFR 30-59 = C enter decreased GFR Moderately 15-29 = Severely decreas ed decreased GFR < GFR 15-2 9 = 15 = Kidney Severely failure This is decrease d an estimated GFR GFR < 1 5 = (Glomerular Kidney Filtration Rate) failure only. The value This is an has been derived estimat ed from the Chronic GFR Kidney Disease - ([facility] Epidemiology Filtration (CKD-Epi) Rate) only. Collaboration The value Equation. The has been calculation derived automatically from the takes patient Chronic sex into Kidney account, but Disease - [facility] cannot Epidemiolog automatically y (CKD-Epi ) adjust the Collaborati formula for on Equatio n. patients, The therefore two calculatio n GFR results are automati babs reported -- ly takes GFR-NON AA and patient s ex GFR-AA. As with into all estimations, account , results may not but [facility] be valid for cannot certain automatical sub-groups ly adjust including: the formula pediatric for patients (0-17 [place] years old), patients, severely therefore hypoalbuminemic two GFR patients, results are patients not in reported -- steady state GFR-NON AA (including acute and GFR -AA. renal failure), As with all dialysis estimations patients, and , results patients with may not be atypical body valid for habitus. Result certain will not be sub-groups reported on including: patients under pediatric 18 years of age. patient s Some (0-17 years pharmacological old), therapeutics are severel y dosed based on hypoalbum in older versions emic of the eGFR. patients, Where deemed patients necessary, refer not in to Pharmacy for steady assistance or state more (including information. acute renal failure), dialysis patients, and patients with atypical body habitus. Result will not be reported on patients under 18 years of age. Some pharmacolog ical therapeutic s are dosed based on older versions of the eGFR. Where deemed necessary, refer to Pharmacy for assistance or more information . Comprehe GFR Black 136.70 60 07/02 >= 60 = Normal SERUM >= 60 = [place] nsive mL/min /2020 or mildly Normal or Leje une Metaboli decreased GFR mildly N aval c Panel 30-59 = decreased Medica l W/GFR Moderately GFR 30-59 = C enter decreased GFR Moderately 15-29 = Severely decreas ed decreased GFR < GFR 15-2 9 = 15 = Kidney Severely failure This is decrease d an estimated GFR GFR < 1 5 = (Glomerular Kidney Filtration Rate) failure only. The value This is an has been derived estimat ed from the Chronic GFR Kidney Disease - (Glomer ular Epidemiology Filtration (CKD-Epi) Rate) only. Collaboration The value Equation. The has been calculation derived automatically from the takes patient Chronic sex into Kidney account, but Disease - [facility] cannot Epidemiolog automatically y (CKD-Epi ) adjust the Collaborati formula for on Equatio n. patients, The therefore two calculatio n GFR results are automati babs reported -- ly takes GFR-NON AA and patient s ex GFR-AA. As with into all estimations, account , results may not but [facility] be valid for cannot certain automatical sub-groups ly adjust including: the formula pediatric for patients (0-17 [place] years old), patients, severely therefore hypoalbuminemic two GFR patients, results are patients not in reported -- steady state GFR-NON AA (including acute and GFR -AA. renal failure), As with all dialysis estimations patients, and , results patients with may not be atypical body valid for habitus. Result certain will not be sub-groups reported on including: patients under pediatric 18 years of age. patient s Some (0-17 years pharmacological old), therapeutics are severel y dosed based on hypoalbum in older versions emic of the eGFR. patients, Where deemed patients necessary, refer not in to Pharmacy for steady assistance or state more (including information. acute renal failure), dialysis patients, and patients with atypical body habitus. Result will not be reported on patients under 18 years of age. Some pharmacolog ical therapeutic s are dosed based on older versions of the eGFR. Where deemed necessary, refer to Pharmacy for assistance or more information . Comprehe GFR Black 136.70 60 07/02 >= 60 = Normal SERUM >= 60 = [place] nsive mL/min /2020 or mildly Normal or Leje une Metaboli decreased GFR mildly N aval c Panel 30-59 = decreased Medica l W/GFR Moderately GFR 30-59 = C enter decreased GFR Moderately 15-29 = Severely decreas ed decreased GFR < GFR 15-2 9 = 15 = Kidney Severely failure This is decrease d an estimated GFR GFR < 1 5 = (Glomerular Kidney Filtration Rate) failure only. The value This is an has been derived estimat ed from the Chronic GFR Kidney Disease - (Glomer ular Epidemiology Filtration (CKD-Epi) Rate) only. Collaboration The value Equation. The has been calculation derived automatically from the takes patient Chronic sex into Kidney account, but Disease - [facility] cannot Epidemiolog automatically y (CKD-Epi ) adjust the Collaborati formula for on Equatio n. patients, The therefore two calculatio n GFR results are automati babs reported -- ly takes GFR-NON AA and patient s ex GFR-AA. As with into all estimations, account , results may not but [facility] be valid for cannot certain automatical sub-groups ly adjust including: the formula pediatric for patients (0-17 [place] years old), patients, severely therefore hypoalbuminemic two GFR patients, results are patients not in reported -- steady state GFR-NON AA (including acute and GFR -AA. renal failure), As with all dialysis estimations patients, and , results patients with may not be atypical body valid for habitus. Result certain will not be sub-groups reported on including: patients under pediatric 18 years of age. patient s Some (0-17 years pharmacological old), therapeutics are severel y dosed based on hypoalbum in older versions emic of the eGFR. patients, Where deemed patients necessary, refer not in to Pharmacy for steady assistance or state more (including information. acute renal failure), dialysis patients, and patients with atypical body habitus. Result will not be reported on patients under 18 years of age. Some pharmacolog ical therapeutic s are dosed based on older versions of the eGFR. Where deemed necessary, refer to Pharmacy for assistance or more information . Comprehe GFR Black 136.70 60 07/02 >= 60 = Normal SERUM >= 60 = [place] nsive mL/min /2020 or mildly Normal or Leje une Metaboli decreased GFR mildly N aval c Panel 30-59 = decreased Medica l W/GFR Moderately GFR 30-59 = C enter decreased GFR Moderately 15-29 = Severely decreas ed decreased GFR < GFR 15-2 9 = 15 = Kidney Severely failure This is decrease d an estimated GFR GFR < 1 5 = (Glomerular Kidney Filtration Rate) failure only. The value This is an has been derived estimat ed from the Chronic GFR Kidney Disease - (Glomer ular Epidemiology Filtration (CKD-Epi) Rate) only. Collaboration The value Equation. The has been calculation derived automatically from the takes patient Chronic sex into Kidney account, but Disease - [facility] cannot Epidemiolog automatically y (CKD-Epi ) adjust the Collaborati formula for on Equatio n. patients, The therefore two calculatio n GFR results are automati babs reported -- ly takes GFR-NON AA and patient s ex GFR-AA. As with into all estimations, account , results may not but [facility] be valid for cannot certain automatical sub-groups ly adjust including: the formula pediatric for patients (0-17 [place] years old), patients, severely therefore hypoalbuminemic two GFR patients, results are patients not in reported -- steady state GFR-NON AA (including acute and GFR -AA. renal failure), As with all dialysis estimations patients, and , results patients with may not be atypical body valid for habitus. Result certain will not be sub-groups reported on including: patients under pediatric 18 years of age. patient s Some (0-17 years pharmacological old), therapeutics are severel y dosed based on hypoalbum in older versions emic of the eGFR. patients, Where deemed patients necessary, refer not in to Pharmacy for steady assistance or state more (including information. acute renal failure), dialysis patients, and patients with atypical body habitus. Result will not be reported on patients under 18 years of age. Some pharmacolog ical therapeutic s are dosed based on older versions of the eGFR. Where deemed necessary, refer to Pharmacy for assistance or more information . Comprehe GFR Black 136.70 60 07/02 >= 60 = Normal SERUM >= 60 = [place] nsive mL/min /2020 or mildly Normal or Leje une Metaboli decreased GFR mildly N aval c Panel 30-59 = decreased Medica l W/GFR Moderately GFR 30-59 = C enter decreased GFR Moderately 15-29 = Severely decreas ed decreased GFR < GFR 15-2 9 = 15 = Kidney Severely failure This is decrease d an estimated GFR GFR < 1 5 = (Glomerular Kidney Filtration Rate) failure only. The value This is an has been derived estimat ed from the Chronic GFR Kidney Disease - ([facility] Epidemiology Filtration (CKD-Epi) Rate) only. Collaboration The value Equation. The has been calculation derived automatically from the takes patient Chronic sex into Kidney account, but Disease - [facility] cannot Epidemiolog automatically y (CKD-Epi ) adjust the Collaborati formula for on Equatio n. patients, The therefore two calculatio n GFR results are automati babs reported -- ly takes GFR-NON AA and patient s ex GFR-AA. As with into all estimations, account , results may not but [facility] be valid for cannot certain automatical sub-groups ly adjust including: the formula pediatric for patients (0-17 [place] years old), patients, severely therefore hypoalbuminemic two GFR patients, results are patients not in reported -- steady state GFR-NON AA (including acute and GFR -AA. renal failure), As with all dialysis estimations patients, and , results patients with may not be atypical body valid for habitus. Result certain will not be sub-groups reported on including: patients under pediatric 18 years of age. patient s Some (0-17 years pharmacological old), therapeutics are severel y dosed based on hypoalbum in older versions emic of the eGFR. patients, Where deemed patients necessary, refer not in to Pharmacy for steady assistance or state more (including information. acute renal failure), dialysis patients, and patients with atypical body habitus. Result will not be reported on patients under 18 years of age. Some pharmacolog ical therapeutic s are dosed based on older versions of the eGFR. Where deemed necessary, refer to Pharmacy for assistance or more information . Comprehe GFR Black 136.70 60 07/02 >= 60 = Normal SERUM >= 60 = [place] nsive mL/min /2020 or mildly Normal or Leje une Metaboli decreased GFR mildly N aval c Panel 30-59 = decreased Medica l W/GFR Moderately GFR 30-59 = C enter decreased GFR Moderately 15-29 = Severely decreas ed decreased GFR < GFR 15-2 9 = 15 = Kidney Severely failure This is decrease d an estimated GFR GFR < 1 5 = (Glomerular Kidney Filtration Rate) failure only. The value This is an has been derived estimat ed from the Chronic GFR Kidney Disease - (Glomer ular Epidemiology Filtration (CKD-Epi) Rate) only. Collaboration The value Equation. The has been calculation derived automatically from the takes patient Chronic sex into Kidney account, but Disease - [facility] cannot Epidemiolog automatically y (CKD-Epi ) adjust the Collaborati formula for on Equatio n. patients, The therefore two calculatio n GFR results are automati babs reported -- ly takes GFR-NON AA and patient s ex GFR-AA. As with into all estimations, account , results may not but [facility] be valid for cannot certain automatical sub-groups ly adjust including: the formula pediatric for patients (0-17 [place] years old), patients, severely therefore hypoalbuminemic two GFR patients, results are patients not in reported -- steady state GFR-NON AA (including acute and GFR -AA. renal failure), As with all dialysis estimations patients, and , results patients with may not be atypical body valid for habitus. Result certain will not be sub-groups reported on including: patients under pediatric 18 years of age. patient s Some (0-17 years pharmacological old), therapeutics are severel y dosed based on hypoalbum in older versions emic of the eGFR. patients, Where deemed patients necessary, refer not in to Pharmacy for steady assistance or state more (including information. acute renal failure), dialysis patients, and patients with atypical body habitus. Result will not be reported on patients under 18 years of age. Some pharmacolog ical therapeutic s are dosed based on older versions of the eGFR. Where deemed necessary, refer to Pharmacy for assistance or more information . Comprehe GFR Black 136.70 60 07/02 >= 60 = Normal SERUM >= 60 = Camp nsive mL/min /2020 or mildly Normal or Leje une Metaboli decreased GFR mildly N aval c Panel 30-59 = decreased Medica l W/GFR Moderately GFR 30-59 = C enter decreased GFR Moderately 15-29 = Severely decreas ed decreased GFR < GFR 15-2 9 = 15 = Kidney Severely failure This is decrease d an estimated GFR GFR < 1 5 = (Glomerular Kidney Filtration Rate) failure only. The value This is an has been derived estimat ed from the Chronic GFR Kidney Disease - (Glomer ular Epidemiology Filtration (CKD-Epi) Rate) only. Collaboration The value Equation. The has been calculation derived automatically from the takes patient Chronic sex into Kidney account, but Disease - [facility] cannot Epidemiolog automatically y (CKD-Epi ) adjust the Collaborati formula for on Equatio n. patients, The therefore two calculatio n GFR results are automati babs reported -- ly takes GFR-NON AA and patient s ex GFR-AA. As with into all estimations, account , results may not but [facility] be valid for cannot certain automatical sub-groups ly adjust including: the formula pediatric for patients (0-17 [place] years old), patients, severely therefore hypoalbuminemic two GFR patients, results are patients not in reported -- steady state GFR-NON AA (including acute and GFR -AA. renal failure), As with all dialysis estimations patients, and , results patients with may not be atypical body valid for habitus. Result certain will not be sub-groups reported on including: patients under pediatric 18 years of age. patient s Some (0-17 years pharmacological old), therapeutics are severel y dosed based on hypoalbum in older versions emic of the eGFR. patients, Where deemed patients necessary, refer not in to Pharmacy for steady assistance or state more (including information. acute renal failure), dialysis patients, and patients with atypical body habitus. Result will not be reported on patients under 18 years of age. Some pharmacolog ical therapeutic s are dosed based on older versions of the eGFR. Where deemed necessary, refer to Pharmacy for assistance or more information . Comprehe GFR Black 136.70 60 07/02 >= 60 = Normal SERUM >= 60 = [place] nsive mL/min /2020 or mildly Normal or Leje une Metaboli decreased GFR mildly N aval c Panel 30-59 = decreased Medica l W/GFR Moderately GFR 30-59 = C enter decreased GFR Moderately 15-29 = Severely decreas ed decreased GFR < GFR 15-2 9 = 15 = Kidney Severely failure This is decrease d an estimated GFR GFR < 1 5 = (Glomerular Kidney Filtration Rate) failure only. The value This is an has been derived estimat ed from the Chronic GFR Kidney Disease - (Glomer ular Epidemiology Filtration (CKD-Epi) Rate) only. Collaboration The value Equation. The has been calculation derived automatically from the takes patient Chronic sex into Kidney account, but Disease - [facility] cannot Epidemiolog automatically y (CKD-Epi ) adjust the Collaborati formula for on Equatio n. patients, The therefore two calculatio n GFR results are automati babs reported -- ly takes GFR-NON AA and patient s ex GFR-AA. As with into all estimations, account , results may not but [facility] be valid for cannot certain automatical sub-groups ly adjust including: the formula pediatric for patients (0-17 [place] years old), patients, severely therefore hypoalbuminemic two GFR patients, results are patients not in reported -- steady state GFR-NON AA (including acute and GFR -AA. renal failure), As with all dialysis estimations patients, and , results patients with may not be atypical body valid for habitus. Result certain will not be sub-groups reported on including: patients under pediatric 18 years of age. patient s Some (0-17 years pharmacological old), therapeutics are severel y dosed based on hypoalbum in older versions emic of the eGFR. patients, Where deemed patients necessary, refer not in to Pharmacy for steady assistance or state more (including information. acute renal failure), dialysis patients, and patients with atypical body habitus. Result will not be reported on patients under 18 years of age. Some pharmacolog ical therapeutic s are dosed based on older versions of the eGFR. Where deemed necessary, refer to Pharmacy for assistance or more information . Ferritin Ferritin 20.6 8 - 252 07/02 SERUM [place] ng/mL /2020 [facility] [place] 16 % 07/02 SERUM [place] Panel Saturation /2020 [facility] Iron [place] 16 % 07/02 SERUM [place] Panel Saturation /2020 [facility] Iron [place] 16 % 07/02 SERUM [place] Panel Saturation /2020 [facility] Thyroid Thyrotropi 1.140 0.358 - 07/02 High levels of SERUM High l evels [place] Stimulat n u[IU]/mL 3.74 biotin can cause of bi otin Yayo ing Sensitive clinically can cause N aval Hormone significant clinically M edical Sensitiv falsely significant Karen ter e decreased falsely results in this decrease d assay. results in this assay. hCG Qual hCG Negative 07/02 URINE [facility] accept[facility] Center le Vital Signs Combined list of inpatient and outpatient Vital Signs from Department of Defense and Veterans Affairs, ranging from 12 months to all on record, depending upon the facility. Vital Sign Value Date Comments Source BMI 27.08kg/m2 08/22/2021 [facility] 15:40:28 [facility] Blood pressure, 125mm[Hg] 08/22/2021 [facility] systolic (BPS), 15:40:28 Medical [facility] er Patient's height value 167.64cm 08/22/2021 [facility] 15:40:28 [facility] Weight (body weight) 76.1kg 08/22/2021 [facility] 15:40:28 [facility] Blood pressure, 84mm[Hg] 08/22/2021 [facility] diastolic (BPD) 15:40:28 Medical Cent er BSA 1.86m2 08/22/2021 [facility] 15:40:28 [facility] Pulse taking 70/min 08/22/2021 [facility] 15:40:28 [facility] Center Respiratory rate 16/min 08/22/2021 [facility] (breaths) 15:40:28 Medical Center Temperature (body 97.5[degF] 08/22/2021 [facility] temperature) 15:40:28 Medical Center Oxygen Saturation SaO2 99%{saturation} 07/02/2021 [facility]ann[facility] 20:15:58 [facility] Center Blood pressure, 134mm[Hg] 07/02/2021 [facility] systolic (BPS), 20:15:58 Medical Cent er Respiratory rate 16/min 07/02/2021 [facility] (breaths) 20:15:58 Medical Center BMI 27.47kg/m2 07/02/2021 [facility] 20:15:58 [facility] Blood pressure, 84mm[Hg] 07/02/2021 [facility] diastolic (BPD) 20:15:58 Medical Cent er Weight (body weight) 77.2kg 07/02/2021 [facility] 20:15:58 [facility] Pulse taking 79/min 07/02/2021 [facility] 20:15:58 [facility] Center Patient's height value 167.64cm 07/02/2021 [facility] 20:15:58 [facility] BSA 1.87m2 07/02/2021 [facility] 20:15:58 [facility] Center Temperature (body 98.6[degF] 07/02/2021 [facility] temperature) 20:15:58 Medical Center No data available for [facility] this section Encounters Combined list of: 1) Encounters from Department of Veterans Affairs facilities going back up to the last 18 months. 2) Encounters from the Department of Defense facilities going back up to 280 months. Location Location Encounter Encounter Reason Attending ADM DC Stat us Disposition Source Details Type Number For Provider Date Date Visit OUTPATIENT [id number] BLADDER LEXI, 03/31 Relea sed w/o Camp PAIN, Limitations Yayo HURTS [facility] UR[facility]ATE [facility]( Blue) OUTPATIENT [id number] CONTINU LEXI, 04/06 Relea sed w/o Camp ED Limitations Yayo SX-PAIN [facility] URINATI Center( ON,FREQ FM UENT Blue) URINATI ON,ABNO RMAL DISCHAR GE TELE [id number] Notes TYREE, 06/02 [facility] CONSULT [facility] 1047 ------- ------- ------- ------- -- I)-NAL- Pt. is having diarrhe a OUTPATIENT [id number] pap-wel ELLIOTT, 06/10 Relea sed w/o Camp l woman Limitations Teresaun e [facility]( Blue) OUTPATIENT [id number] knee ELLIOTT, 07/04 Release d w/o Camp pain Limitations [place] Hospital( Blue) TELE [id number] SANDRA Poon 09/10 Camp CONSULT Entered Yayo by: Cristobal [place] [address] Center( Sep 2013 Blue) 0933 ------- ------- ------- ------- -- I] nal; no appts, sent to [facility] TELE [id number] Frankie MARTINZE 10/16 Camp CONSULT Entered Yayo by: WANDA MARTINEZ [facility]( Oct Blue) 2013 1902 ------- ------- ------- ------- -- I)NAL: pt request s UC referra l since she is [place] for stomach pain TELE [id number] Notes TYREE, 10/24 Camp CONSULT [facility]: [facility]( C 17 FM Oct Blue) 2013 1328 ------- ------- ------- ------- -- I)-NAL- Pt. is having nausea, diarrhe a and pelvic pain TELE [id number] Frankie HODGE, 05/03 Released to Camp CONSULT Entered Self Care Lejeun e by: [place]AN [place]UN[place]rek [place] [id number] Center( Apr Blue) 1550 ------- ------- ------- ------- -- I NAL: Pt c/o headach e and heartbu rn OUTPATIENT [id number] Frankie SIMONS, 05/10 Release d w/o Camp Entered January Limitations [facility] Case 2013 Managem 1344 ent ------- Wounded ------- Wilson) ------- ------- -- ED Case managme nt review and follow up. OUTPATIENT [id number] f/u 05/23 Released w/o Camp from ER SAVANNAH Limitations Vianey goldberg [facility] Center( reflex Blue) TELE [id number] Frankie 06/12 Camp CONSULT Entered Yayo by: [facility] GENE [facility] ANTONIO Center( A C Jun Blue) 2013 1255 ------- ------- ------- ------- -- Possibl e UTI OUTPATIENT [id number] UTI 06/13 Released w/o Camp symptom Limitations Shaina yusuf s/faile [facility] protoco Center( l Blue) TELE [id number] Frankie 06/15 Camp CONSULT Entered Yayo by: [facility] SAVANNAH [place]( H Jun Blue) 2013 1401 ------- ------- ------- ------- -- Lab results OUTPATIENT [id number] malaika HARDEN, 12/29 Releas ed w/o [place] Camp back JEREMIE Limitations Pendlet pain HAY on, [place](CP FP [facility] Blue Team) OUTPATIENT [id number] sinus STACEY, 04/05 Releas ed w/o [place] Camp infecti KARINA H Limitations Pe ndlet on with on, sinus CA(CP juana FP [facility] e Blue Team) OUTPATIENT [id number] janie DONOVAN, 06/06 Released w/o [facility] Mckenzie AZAEL A Limitations go(C P FP [facility] Green Team) TELE [id number] Frankie MOURA, 08/21 Other Not NM C Mckenzie CONSULT Entered FINA Elsewhere Brenda zapata(C by: Gilmer MOURA [facility] SANJANA Foster Team) S 21 Aug 2016 1508 ------- ------- ------- ------- -- PAP Card sent . Results WNL. OUTPATIENT [id number] rustam ACOSTA, 02/24 Relea sed w/o [facility] Mckenzie control [facility] Limitations Miguel A (Jose KIM [facility] Brandon Team) TELE [id number] Frankie SCHNEIDER, 03/02 Referred for [facility] Mckenzie CONSULT Entered RATNA Appointment Mj pretty(C by: Emmanuel SCHNEIDER [facility] RATNA [facility] Team) Feb 2017 1016 ------- ------- ------- ------- -- Schedul e [facility] Appt TELE [id number] Frankie ACOSTA, 03/09 [facility] Mckenzie CONSULT Entered [facility] Miguel A(B by: Emmanuel CHRISTIAN,[facility] Care) F 09 Mar 2017 1342 ------- ------- ------- ------- -- Labs and Recs OUTPATIENT [id number] CRIS RODGERS 03/23 Rele ased w/o [facility] Mckenzie MANAGE Limitations Miguel A( Jose KIM (PCM P ARSEN Mosher SEEN BY Team) ANGELICA CHRISTIAN) TELE [id number] Notes JERICHO, 04/16 [facility] Mckenzie CONSULT Entered LUCINA Miguel A(C by: Emmanuel TRAVIS ,ALEJANDRA Luna 07 Team) Apr 2017 0733 ------- ------- ------- ------- -- UTI OUTPATIENT [id number] depress HERRERA, 04/28 Releas ed w/o [facility] Mckenzie ion and MARINO Limitations D iego(C anxiety P JULIO [facility] Brandon Team) OUTPATIENT [id number] follow HERRERA, 05/19 Release d w/o [facility] Mckenzie up MARINO Limitations go(C appoint Emmanuel raygoza [facility] for Brandon jorgensenoft/ Team) medicat ion TELE [id number] Notes WYATT, 05/20 Referred for [facility] Mckenzie CONSULT Entered RATNA Appointment D iego(C by: Emmanuel SCHNEIDER Emmanuel Taylor [facility] Team) May 2017 1321 ------- ------- ------- ------- -- Schedul e [facility] Appt TELE [id number] Notes CHIARA, 02/23 Other Not C amp CONSULT 7 Entered ZBIGNIEW Elsewhere Shaina armijo by: Classified [facility] S,SOURAV Center( J 17 FM Red) Feb 2020 0857 ------- ------- ------- ------- -- cervica l cancer screeni ng OUTPATIENT [id number] PAP SUGEY, 05/24 Released w /o Camp 5 SUNITA Limitations Jaylan STRANGE [facility]( FM Red) OUTPATIENT [id number] well CARMEN, 06/26 Release d w/o Camp 5 checkup IGOR SANDRA Limitations L link and [facility] routine Medical labs/PA Center( P if FM possibl White) e and gut concern s OUTPATIENT [id number] Notes LV, 07/19 Relea sed w/o Camp 2 Entered MILAN A Limitations Vianey goldberg by: [facility]( ALEXAND COVID19 ER 10 Sc[facility]) 2020 1150 ------- ------- ------- ------- -- covid test/cl ose contact /[id number] OUTPATIENT [id number] MEG MORALES, 08/20 Release d w/o Camp 1 VILMA COSTA SANDRA /2021 Limitations Le zofia [facility]( [facility]) Procedures Combined list of: 1) Procedures from Department of Veterans Affairs facilities going back up to the last 18 months, not all VA non-surgical procedures are included; 2) All procedures from the Department of Defense facilities. Procedure Procedure Type Code Date Perfomer Comments Sourc e Psychometric Psychometric 38271 05/20/20 HERRERARadha Emotional / Emotional / 17 MARINO P Behavioral A e Behavioral ment Assessment Psychometric Psychometric 94398 03/23/20 CRIS CABELLO oD Emotional / Emotional / 17 Behavioral A e Behavioral ment Assessment Health And 03/23/20 CRIS CABELLO Behavior 17 Intervention, Each Additional 15 Minutes Individual Health And Behav A 03/23/20 CRIS CABELLO e mt Each 15 Min 17 Initial [place] [id number] 02/26/20 Mj ACOSTA oD Dipstick Dipstick 17 DANTE F Urine HCG, Urine HCG, 25454 02/26/20 Luis AOCSTA Test Test 17 DANTE F Psychometric Psychometric 41969 02/26/20 Radha ACOSTA Emotional / Emotional / 17 DANTE F Behavioral A e Behavioral ment Assessment Screening 06/10/20 Radha DONOVAN papanicolaou 16 AZAEL A smear; obtaining, preparing and conveyance of cervical or vaginal smear to laboratory Psychometric Psychometric 53102 06/09/20 Radha DONOVAN Emotional / Emotional / 16 AZAEL A Behavioral A e Behavioral ment Assessment Non-Physician Non-Physician [id number] 06/12/20 CRIS NAVARRO Phone Call To Phone Call To 14 RATNA Patient/Provider Patient/Provider Brief (5-10min) Brief (5-10min) Case Management, 05/10/20 [facility] each 15 minutes 14 R Screening SUNITA MAYES papanicolaou ALEXANDR smear; obtaining, preparing and conveyance of cervical or vaginal smear to laboratory Gynecologic Gynecologic [address] [facility] ANGELA Krishna Intrauterine Intrauterine Device (IUD) Device (IUD) Removal Removal URINE 12/26/19 [facility] TEST, BY VISUAL 15 COLOR COMPARISON METHODS BRIEF 05/20/20 [facility] EMOTIONAL/BEHAVIOR 17 AL ASSESSMENT (EG, DEPRESSION INVENTORY, ATTENTION-DEFICIT/ HYPERACTIVITY DISORDER [ADHD] SCALE), WITH SCORING AND DOCUMENTATION, PER STANDARDIZED INSTRUMENT BRIEF 03/23/20 DoD EMOTIONAL/BEHAVIOR 17 AL ASSESSMENT (EG, DEPRESSION INVENTORY, ATTENTION-DEFICIT/ HYPERACTIVITY DISORDER [ADHD] SCALE), WITH SCORING AND DOCUMENTATION, PER STANDARDIZED INSTRUMENT UNLISTED 02/26/20 [facility] URINALYSIS 17 PROCEDURE BRIEF 06/09/20 DoD EMOTIONAL/BEHAVIOR 16 AL ASSESSMENT (EG, DEPRESSION INVENTORY, ATTENTION-DEFICIT/ HYPERACTIVITY DISORDER [ADHD] SCALE), WITH SCORING AND DOCUMENTATION, PER STANDARDIZED INSTRUMENT SERVICE(S) 11/23/19 DoD PROVIDED BETWEEN 16 10:00 PM AND 8:00 AM AT 24-HOUR FACILITY, IN ADDITION TO BASIC SERVICE BRIEF 08/22/19 DoD EMOTIONAL/BEHAVIOR 22 AL ASSESSMENT (EG, DEPRESSION INVENTORY, ATTENTION-DEFICIT/ HYPERACTIVITY DISORDER [ADHD] SCALE), WITH SCORING AND DOCUMENTATION, PER STANDARDIZED INSTRUMENT BRIEF 07/02/20 DoD EMOTIONAL/BEHAVIOR 21 AL ASSESSMENT (EG, DEPRESSION INVENTORY, ATTENTION-DEFICIT/ HYPERACTIVITY DISORDER [ADHD] SCALE), WITH SCORING AND DOCUMENTATION, PER STANDARDIZED INSTRUMENT SCREENING 05/30/20 DoD PAPANICOLAOU 20 SMEAR; OBTAINING, PREPARING AND CONVEYANCE OF CERVICAL OR VAGINAL SMEAR TO LABORATORY TELE ASSESS & MGT 06/12/20 Do D SRV PROV QUAL 14 NONPHYS HLTH CARE PRO TO EST PAT,PARENT,GUARD NOT ORIG REL ASSESS & MGT SRV PROV W/IN PREV 7 DAYS NOR LEAD ASSESS & MGT SRV/PX W/IN NXT 24 HR/SOON APT;5-10 MIN MED DIS CASE MANAGEMENT, 05/10/20 DoD EACH 15 MINUTES 14 ELECTROCARDIOGRAM, 05/04/20 D oD ROUTINE ECG WITH 14 AT LEAST 12 LEADS; WITH INTERPRETATION AND REPORT INJECTION, 04/03/20 DoD KETOROLAC 14 TROMETHAMINE, PER 15 MG SMEAR, PRIMARY 04/06/20 DoD SOURCE WITH 13 INTERPRETATION; WET MOUNT FOR INFECTIOUS AGENTS (EG, SALINE, ANDREW INK, JOLLY PREPS) No data available Am bulatory for this section Pha rmacy Assessment and Plan Combined list of future care activities from Department of Defense and Veterans Affairs facilities (e.g., assessment and plan notes, appointments, orders, and referrals). Additional future care activities may be listed in the Plan of Care section. Result Assessment and Plan Date Source Assessment and Plan No data available for this 07/22/2022 A mbulatory Pharmacy section Functional Status Combined list of recent functional and cognitive assessments recorded at Department of Defense and Veterans Affairs (NH).NH Functional [place] Measurement (FIM) Scale: 1 = Total Assistance (Subject = 0% +), 2 = Maximal Assistance (Subject = 25% +), 3 = Moderate Assistance (Subject = 50% +), 4 = Mi nimal Assistance (Subject = 75% +), 5 = Supervision, 6 = Modified [place] (Device), 7 = Complete [place] (Timely, Safely). Assessment Source Assessment Type Assessment Assessment Assessmen t Date/Time Skill Score Details No data available for this section
--- OUTSIDE RECORDS SUMMARY | 2022-07-22 16:34 | XMS_ITS ---
:1990 Author Care Team Providers Name Role Phone Nasrin Cabrera Primary Care Provider Unavailable Allergies Code Code System Name Reaction Severity Status Onset Sulfa (Sulfonamide Antibiotics) ? ? Active ? NKDA ? Medications Name Status Start Date Stop Date ? ? Tiffanie-D 24 Hour 180 mg-240 mg tablet,extended release Active ? Not available Take 1 tablet every day by oral route as needed. ciprofloxacin 250 mg tablet Active ? Not available Take 1 tablet every 12 hours by oral route for 5 days. Flonase Allergy Relief 50 mcg/actuation nasal spray,suspension A ctive ? Not available [place] 1 spray twice a day by intranasal route. fluconazole 150 mg tablet Active ? Not av ailable Take 1 tablet every 72 hours by oral route. Problems No Known Problems Procedures Notes: none Results Lab Results Date Name Specimen Result Interpretation Description Value Range Status Address ? 06/21/2018 Culture, Urine ? Culture, see note ? [facility] - [place]: [address], [place] ? Rapid Flu ? Flu a negative ? ? In-Of fice (A+B) Order: Internal U se Only DO No t Attach Compendium DO Not Attach Compendium , Do Not Delete/shasha ge ? ? ? Flu B negative ? ? In-Offic e Order: Internal U se Only DO No t Attach Compendium DO Not Attach Compendium , Do Not Delete/shasha ge ? Pulse Oximetry ? Pulse Oximetry 100% room ? ? In-Office (PROC) air at rest Order : Internal U se Only DO No t Attach Compendium DO Not Attach Compendium , Do Not Delete/shasha ge ? Rapid SARS CoV ? No observation ? ? ? In-Office 2 Ag, QL IA, recorded. O rder: Respiratory Inter nal Use Specimen Only DO Not Attach Compendium DO Not Attach Compendium , Do Not Delete/shasha ge ? Urinalysis, ? Glucose Negative ? ? I n-Office Dipstick Order: Internal U se Only DO No t Attach Compendium DO Not Attach Compendium , Do Not Delete/shasha ge ? ? ? Bilirubin Negative ? ? In-O ffice Order: Internal U se Only DO No t Attach Compendium DO Not Attach Compendium , Do Not Delete/shasha ge ? ? ? Ketones Moderate ? ? In-Off ice Order: Internal U se Only DO No t Attach Compendium DO Not Attach Compendium , Do Not Delete/shasha ge ? ? ? Sg 1.010 ? ? In-Office Order: Internal U se Only DO No t Attach Compendium DO Not Attach Compendium , Do Not Delete/shasha ge ? ? ? Blood Non-hemolyz ? ? In-Of fice ed: trace Order: Internal U se Only DO No t Attach Compendium DO Not Attach Compendium , Do Not Delete/shasha ge ? ? ? Ph 5.5 ? ? In-Office Order: Internal U se Only DO No t Attach Compendium DO Not Attach Compendium , Do Not Delete/shasha ge ? ? ? Protein Negative ? ? In-Off ice Order: Internal U se Only DO No t Attach Compendium DO Not Attach Compendium , Do Not Delete/shasha ge ? ? ? Urobilinogen 0.2 ? ? In- Office Order: Internal U se Only DO No t Attach Compendium DO Not Attach Compendium , Do Not Delete/shasha ge ? ? ? Nitrites negative ? ? In-Of fice Order: Internal U se Only DO No t Attach Compendium DO Not Attach Compendium , Do Not Delete/shasha ge ? ? ? Leukocytes Trace ? ? In-Of fice Order: Internal U se Only DO No t Attach Compendium DO Not Attach Compendium , Do Not Delete/shasha ge ? ? ? Appearance Clear ? ? In-Of fice Order: Internal U se Only DO No t Attach Compendium DO Not Attach Compendium , Do Not Delete/shasha ge ? ? ? Color Yellow ? ? In-Office Order: Internal U se Only DO No t Attach Compendium DO Not Attach Compendium , Do Not Delete/shasha ge ? Pulse Oximetry ? Pulse Oximetry 99 ? ? In-Office (PROC) Order: Internal U se Only DO No t Attach Compendium DO Not Attach Compendium , Do Not Delete/shasha ge ? ? Hcg negative ? ? In-Of fice Test, Urine Order : Internal U se Only DO No t Attach Compendium DO Not Attach Compendium , Do Not Delete/shasha ge Past Encounters None recorded. Social History Tobacco Smoking Status Current Some Day Smoker Notes: pt states she vapes Vaccine List Notes: utd Plan of Care Reminders Provider Appointments None recorded. ? ? Lab None recorded. ? ? Referral None recorded. ? ? Procedures None recorded. ? ? Surgeries None recorded. ? ? Imaging None recorded. ? ? Vitals 11/30/2020 03:40PM Walk In Est Patient Height Weight BMI Blood Pressure 5 ft 6 in 155 lbs 25 kg/m2 135/89 mm[Hg] 06/21/2018 06:26PM Walk In New Patient Height Weight BMI Blood Pressure 5 ft 6 in 180 lbs 29.1 kg/m2 136/95 mm[Hg]
[2022-07-22 21:35] LABS: Hepatitis B Surface Antigen* Negative (Negative)
[2022-07-22 21:40] LABS: HIV 1/2/P24 Combo Screen* Negative (Negative)
[2022-07-22 22:08] LABS: Hepatitis C Virus Antibody* Negative (Negative)
[2022-07-22 22:33] LABS: Chlamydia DNA Amplified* NOT DETECTED (No Detected); GC DNA Amplified* NOT DETECTED (No Detected)
[2022-07-25 02:47] LABS: Rapid Plasma Reagin (RPR) Non Reactive (Non Reactive)
[2022-07-25 05:13] LABS: Varicella-Zoster Virus Ab, IgG 475.6 IV
== END 2022-07-22 16:29 | disposition home or self-care (01) ==
PROVIDERS: Visit Provider Physician Assistant
DX: Z34.91 Encounter for supervision of normal pregnancy, unspecified, first trimester (principal); Z3A.01 Less than 8 weeks gestation of pregnancy
CPT/HCPCS: 76817; 86592; 86703; 86762; 86787; 86803; 86850; 86900; 86901; 87086; 87340; 87491; 87591

== ENCOUNTER 2022-09-16 16:49 | Outpatient (CLI) | payer OTHER, SELFPAY | END 2022-09-16 16:50 | disposition home or self-care (01) | LOC: NFLDREF 16:49 | PROVIDERS: PCP Physician Assistant; Visit Provider Registered Nurse | DX: R30.0 Dysuria (principal) | CPT/HCPCS: 87086 ==

== ENCOUNTER 2022-10-21 13:57 | Outpatient (CLI) | payer OTHER, SELFPAY ==
--- NOTE | 2022-10-21 14:00 | CRLHL7_ITS ---
For Patients: As a result of the Century Cures Act, medical imaging exams and procedure reports are released immediately into your electronic medical record. You may view this report before your referring provider. If you have questions, please contact your health care provider. INDICATION: Evaluate anatomy. COMPARISON: 07/22/2022 TECHNIQUE: Real time briceño scale imaging of the fetus was performed as well as color Doppler analysis of the umbilical vessels. FINDINGS: Sonographic imaging demonstrates a single living intrauterine gestation. Fetus demonstrates a regular cardiac rate of 145 beats per minute. Fetus has a breech position. The placenta lies posteriorly without evidence of placenta previa. The edge of the placenta is located 5.1 cm from the internal cervical os. Amniotic fluid volume appears normal. Single deepest vertical pocket: 4.5 cm. The cervix is closed and measures 4.6 cm in length. The composite ultrasound gestational age is calculated at 20 weeks 2 days with an estimated sonographic due date of 03/08/2023. The estimated weight is 314 grams which lies at the 43rd %. The following biometric measurements were obtained: Biparietal diameter: 4.6 cm/20 weeks 0 days 56th% Head circumference: 18.0 cm/20 weeks 3 days 69th% Abdominal circumference: 14.8 cm/20 weeks 0 days 51st% Femur length: 3.0 cm/19 weeks 3 days 25th% The HC/AC ratio measures: 1.22 range (1.07-1.25) On anatomic survey, there is a normal appearance of the cerebral ventricles, cavum septi pellucidi, cisterna magna and cerebellum. The nose, lips, and facial profile appear normal. The cervical, thoracic and lumbar spine are well visualized and appear normal. There is a normal four-chamber heart view and the left and right ventricular outflow tracts appear normal. The diaphragm and stomach appear normal. The kidneys and bladder also appear normal. There is a normal three-vessel cord and there is an eccentric cord insertion site with the umbilical cord located 2.7 cm from the placental edge. The four extremities appear normal. IMPRESSION: Normal OB ultrasound exam with concordance of clinical and sonographic dating. No intrinsic abnormalities noted on anatomic survey. Dictated by J Carlos Kam MD @ 10/22/2022 11:13:21 AM (Electronically Signed)
== END 2022-10-21 13:58 | disposition home or self-care (01) ==
LOC: US 13:58
PROVIDERS: PCP Physician Assistant; Visit Provider Registered Nurse
DX: Z34.92 Encounter for supervision of normal pregnancy, unspecified, second trimester (principal); Z3A.20 20 weeks gestation of pregnancy
CPT/HCPCS: 76805